=== PATIENT | female | born 1985 | race Caucasian/White ===

== ENCOUNTER 2018-12-27 10:05 | Emergency (ER) | payer MEDICAID ==
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
== END 2018-12-27 11:45 | disposition home or self-care (01) ==
LOC: CC.ED 10:05 → SUPCPDRO 10:05 → CC.ED 11:45
DX: S93.401A Sprain of unspecified ligament of right ankle, initial encounter (principal); Z79.899 Other long term (current) drug therapy; Z87.891 Personal history of nicotine dependence; Z88.6 Allergy status to analgesic agent; F41.9 Anxiety disorder, unspecified; F32.9 Major depressive disorder, single episode, unspecified; W22.8XXA Striking against or struck by other objects, initial encounter
CPT/HCPCS: 73600-RT; 99283-25

== ENCOUNTER 2019-02-09 10:42 | Emergency (ER) | payer SELFPAY ==
[2019-02-09] MEDS ORDERED: Clindamycin HCl 150 MG Cap PO ONE (10:43)
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
[2019-02-09] MEDS ORDERED: Take Home: Clindamycin HCl 150 MG Cap, 6 Cap Pack PO ONE (10:53)
== END 2019-02-09 11:00 | disposition home or self-care (01) ==
LOC: CC.ED 10:42
DX: K04.7 Periapical abscess without sinus (principal); F41.9 Anxiety disorder, unspecified; F32.9 Major depressive disorder, single episode, unspecified; Z88.8 Allergy status to other drugs, medicaments and biological substances; Z79.899 Other long term (current) drug therapy
CPT/HCPCS: 99282; A9270-GY

== ENCOUNTER 2020-08-19 16:17 | Emergency (ER) | payer MEDICAID ==
[2020-08-19] MEDS ORDERED: Clindamycin HCl 150 MG Cap ONE (16:38)
[2020-08-19] MEDS ORDERED: Take Home: Clindamycin HCl 150 MG Cap, 6 Cap Pack PO ONE ×2 (16:52→16:53)
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
== END 2020-08-19 17:08 | disposition home or self-care (01) ==
LOC: CC.ED 16:17
DX: K04.7 Periapical abscess without sinus (principal); F41.9 Anxiety disorder, unspecified; F32.9 Major depressive disorder, single episode, unspecified; Z79.899 Other long term (current) drug therapy; Z88.6 Allergy status to analgesic agent; Z88.0 Allergy status to penicillin
CPT/HCPCS: 99282; A9270

== ENCOUNTER 2022-07-06 10:22 | Emergency (ER) | payer MEDICAID, OTHER ==
[2022-07-06] MEDS ORDERED: Albuterol/Ipratropium 3.0-0.5 MG/3 ML Neb Soln NEB ONE (12:03)
== END 2022-07-06 11:20 | disposition home or self-care (01) ==
LOC: CC.ED 10:22
DX: H66.003 Acute suppurative otitis media without spontaneous rupture of ear drum, bilateral (principal); Z88.8 Allergy status to other drugs, medicaments and biological substances; Z88.0 Allergy status to penicillin
CPT/HCPCS: 99283